=== PATIENT | male | born 1955 | race Caucasian/White ===

== ENCOUNTER 2018-12-24 13:56 | Emergency (ER) | payer MEDICARE, OTHER ==
[~2018-12-24] VITALS: Ht 185.4 cm; Wt 130.0 kg
[2018-12-24 14:02] VITALS: BP 141/70
--- NOTE | 2018-12-24 14:55 | NUR ---
PA at bedside. Pt. stated he swallowed food bolus w/ complete relief of symptoms.
== END 2018-12-24 15:01 | disposition home or self-care (01) ==
LOC: ER 13:56
DX: R09.89 Other specified symptoms and signs involving the circulatory and respiratory systems (principal); I10 Essential (primary) hypertension; J45.909 Unspecified asthma, uncomplicated; E11.9 Type 2 diabetes mellitus without complications; Z88.0 Allergy status to penicillin
CPT/HCPCS: 99283